=== PATIENT | male | born 1950 | race African-American/Black ===

== ENCOUNTER 2025-03-25 08:50 | Inpatient (IN) | payer BC, MEDICAID ==
[~2025-03-25] VITALS: Ht 177.8 cm; Wt 69.9 kg
[2025-03-25 08:52] VITALS: O2SAT 98
[2025-03-25 09:29] LABS: CLARITY URINE CLOUDY (CLEAR); COLOR URINE YELLOW (YELLOW); GLUCOSE URINE NEGATIVE (NEGATIVE); KETONES URINE NEGATIVE (NEGATIVE); LEUKOCYTE ESTERASE URINE 3+ (NEGATIVE); NITRITE URINE POSITIVE (NEGATIVE); OCCULT BLOOD URINE 2+ (NEGATIVE); PH URINE 5.5 (4.5-8.0); PROTEIN URINE 1+ (NEGATIVE); SPECIFIC GRAVITY URINE 1.010 (1.005-1.030); UROBILINOGEN URINE 0.2 E.U./dL (0.2-1.0)
[2025-03-25 09:45] LABS: BACTERIA URINE 3+; RBC URINE 15-25 /hpf (0-2); SQUAMOUS EPITHELIAL CELL URINE RARE /lpf (RARE/1+); WBC URINE 50-100 /hpf (0-2); YEAST URINE NONE SEEN
[2025-03-25] MEDS ORDERED: CEFTRIAXONE 1,000 MG in DEXT 5% WATER 100 ML IV SCH (10:30)
[2025-03-25 10:59] LABS: BASOPHILS % 0.9 % (0.0-2.0); EOSINOPHILS % 0.5 % (0.0-5.0); HEMATOCRIT. 28.0 % (42.0-52.0); HEMOGLOBIN. 8.7 g/dL (14.0-18.0); LYMPHOCYTES % 11.8 % (20.0-50.0); MEAN PLATELET VOLUME 7.5 fl (7.4-10.4); MONOCYTES % 11.6 % (2.0-8.0); NEUTROPHILS % 75.2 % (40.0-76.0); PLATELET 316 x1000/uL (130-400); RED BLOOD CELL COUNT 3.57 mill/uL (4.7-6.1); RED CELL DISTRIBUTION WIDTH 17.4 % (11.6-14.6)
[2025-03-25] MEDS: CEFTRIAXONE 1GM/50ML 50ML IV NR (11:06)
[2025-03-25 11:09] LABS: CREATININE 0.9 mg/dL (0.6-1.3); UREA NITROGEN BLOOD 6 mg/dL (9-23)
[2025-03-25] MEDS ORDERED: TIOT18CA3 IH (15:09)
[2025-03-25] MEDS ORDERED: FLUT12AE7 INH (15:09)
[2025-03-25] MEDS ORDERED: DEXT15SY3 PO (15:09)
[2025-03-25] MEDS ORDERED: TAMS-54 PO (15:09)
[2025-03-25] MEDS ORDERED: OXYB-52 PO (15:09)
[2025-03-25] MEDS ORDERED: ACET-2708 MT (15:09)
[2025-03-25] MEDS ORDERED: ALBU18HF2 IH (15:09)
[2025-03-25] MEDS ORDERED: ACET-2708 PO (15:09)
[2025-03-25 15:27] VITALS: BP 124/64; PULSE 75; RESP 18; TEMP 36.5292
[2025-03-25 16:00] VITALS: BP 129/68; PULSE 65; RESP 18; TEMP 36.9; O2SAT 100
[2025-03-25] MEDS: TAMSULOSIN HCL 0.4MG SR CAPSULE PO SCH (19:19)
[2025-03-25 20:00] VITALS: BP 145/71; PULSE 64; RESP 20; TEMP 36.7; O2SAT 99
[2025-03-26] VITALS: BP 138/69; PULSE 73; RESP 19; TEMP 37.1; O2SAT 100
[2025-03-26] MEDS ORDERED: ACETAMINOPHEN 325MG TABLET PO PRN ×3 (00:30→09:15)
[2025-03-26 04:00] VITALS: BP_SYST 120; PULSE 80; RESP 20; TEMP 37.1; O2SAT 100
[2025-03-26 08:00] VITALS: BP 121/69; PULSE 75; RESP 21; TEMP 36.2; O2SAT 99
[2025-03-26] MEDS: OXYBUTYNIN CHLORIDE 5MG TABLET PO SCH (09:00)
[2025-03-26] MEDS ORDERED: IPRATROPIUM/ALBUTEROL 0.5-3(2.5)MG/3ML NEB HHN PRN (09:15)
[2025-03-26] MEDS ORDERED: ONDANSETRON HCL 4MG/2ML INJ IV PRN (09:15)
[2025-03-26] MEDS ORDERED: CLONIDINE 0.1MG TABLET PO PRN (09:15)
[2025-03-26] MEDS ORDERED: DOCUSATE SODIUM 100MG CAPSULE PO PRN (09:15)
[2025-03-26 12:00] VITALS: BP 123/69; PULSE 62; RESP 20; TEMP 37.1; O2SAT 100
[2025-03-26] MEDS: CEFTRIAXONE 1GM/50ML 50 ML IV SCH (12:57)
[2025-03-26 16:00] VITALS: BP 122/71; PULSE 70; RESP 20; TEMP 36.4; O2SAT 98
[2025-03-26 20:00] VITALS: BP 123/61; PULSE 64; RESP 20; TEMP 36.4; O2SAT 97
[2025-03-26] MEDS ORDERED: IOHEXOL-350 50 ML BOTTLE ONE (21:45)
[2025-03-26 22:14] LABS: BASOPHILS % 1.6 % (0.0-2.0); EOSINOPHILS % 2.2 % (0.0-5.0); HEMATOCRIT. 25.3 % (42.0-52.0); HEMOGLOBIN. 8.0 g/dL (14.0-18.0); LYMPHOCYTES % 31.7 % (20.0-50.0); MEAN PLATELET VOLUME 7.8 fl (7.4-10.4); MONOCYTES % 14.6 % (2.0-8.0); NEUTROPHILS % 49.9 % (40.0-76.0); PLATELET 283 x1000/uL (130-400); RED BLOOD CELL COUNT 3.25 mill/uL (4.7-6.1); RED CELL DISTRIBUTION WIDTH 17.4 % (11.6-14.6)
[2025-03-26 22:28] LABS: CREATININE 0.7 mg/dL (0.6-1.3); TROPONIN I HIGH SENSITIVITY < 4 ng/L (3.0-53); UREA NITROGEN BLOOD 7 mg/dL (9-23)
[2025-03-26 22:29] LABS: CREATINE KINASE MB FRACTION < 0.5 ng/mL (0.5-3.6); PROTEIN TOTAL 6.2 g/dL (6.0-8.3)
[2025-03-26 22:30] LABS: ASPARTATE AMINOTRANSFERASE 12 IU/L (<34); BILIRUBIN DIRECT < 0.1 mg/dL (<=3.0); BILIRUBIN TOTAL 0.2 mg/dL (0.1-1.0); PHOSPHORUS 3.2 mg/dL (2.5-4.9)
[2025-03-26 22:32] LABS: INR 1.0
[2025-03-26 22:34] LABS: FOLIC ACID (FOLATE) SERUM 17.62 ng/mL (>5.38); VITAMIN B12 SERUM 328 pg/mL (211-911)
[2025-03-27] VITALS: BP 108/52; PULSE 58; RESP 20; TEMP 36.1; O2SAT 96
[2025-03-27 04:00] VITALS: BP 115/68; PULSE 66; RESP 20; TEMP 36.4; O2SAT 100
[2025-03-27 08:00] VITALS: BP 113/60; PULSE 56; RESP 19; TEMP 36.7; O2SAT 98
[2025-03-27 08:33] LABS: HEMATOCRIT. 25.9 % (42.0-52.0); HEMOGLOBIN. 8.1 g/dL (14.0-18.0); MEAN PLATELET VOLUME 7.7 fl (7.4-10.4); PLATELET 278 x1000/uL (130-400); RED BLOOD CELL COUNT 3.28 mill/uL (4.7-6.1); RED CELL DISTRIBUTION WIDTH 17.2 % (11.6-14.6)
[2025-03-27 09:14] LABS: CREATININE 0.7 mg/dL (0.6-1.3); UREA NITROGEN BLOOD 5 mg/dL (9-23)
[2025-03-27 12:00] VITALS: BP 121/66; PULSE 60; RESP 19; TEMP 37.1; O2SAT 98
[2025-03-27 15:13] LABS: EOSINOPHILS % MANUAL 2.0 % (0.0-5.0); LYMPHOCYTES % MANUAL 32.0 % (20.0-50.0); MONOCYTES % MANUAL 15.0 % (2.0-8.0); NEUTROPHILS % MANUAL 51.0 % (45.0-75.0); PLATELET ESTIMATE NORMAL
[2025-03-27 16:00] VITALS: BP 118/68; PULSE 62; RESP 20; TEMP 36.7; O2SAT 98
[2025-03-27 20:00] VITALS: BP 128/73; PULSE 69; RESP 20; TEMP 36.4; O2SAT 100
[2025-03-28] VITALS: BP 112/57; PULSE 72; RESP 19; TEMP 36.1; O2SAT 99
[2025-03-28 04:00] VITALS: BP 120/80; PULSE 82; RESP 19; TEMP 36.2; O2SAT 90
[2025-03-28 05:52] VITALS: BP 120/80; PULSE 82; RESP 20; TEMP 36.2; O2SAT 99
[2025-03-28 08:00] VITALS: BP 118/52; PULSE 60; RESP 18; TEMP 36.5; O2SAT 98
[2025-03-28] MEDS ORDERED: TAMS-54 MT (10:21)
[2025-03-28] MEDS ORDERED: LEVO-65 MT (10:21)
[2025-03-28] MEDS ORDERED: OXYB-52 MT (10:21)
== END 2025-03-28 09:48 | disposition left against medical advice (07) | DRG 690 ==
LOC: ER 08:50 → 6EST 12:04 → EDBEDREQTM 12:07 → EDBEDREQ 12:07 → ENRESERV 12:12
PROVIDERS: ADMIT Internal Medicine; ATTEND Internal Medicine
DX: N30.91 Cystitis, unspecified with hematuria (principal); D64.9 Anemia, unspecified; I10 Essential (primary) hypertension; N40.1 Benign prostatic hyperplasia with lower urinary tract symptoms; R91.8 Other nonspecific abnormal finding of lung field; Z53.29 Procedure and treatment not carried out because of patient's decision for other reasons; N13.8 Other obstructive and reflux uropathy; Z79.899 Other long term (current) drug therapy; Z88.0 Allergy status to penicillin
CPT/HCPCS: 36415; 71275; 74176; 80048; 80076; 81003; 82550; 82553; 82607; 82728; 82746; 83036; 83540; 83550; 83735; 84100; 84153; 84484; 85025; 87077; 87186; 96365; 99285; A4606; J0696; Q9967